=== PATIENT | male | born 1950 | race Two or more races ===

== ENCOUNTER 2025-10-20 10:01 | Emergency (ER) | payer OTHER, MEDICAID ==
[~2025-10-20] VITALS: Ht 165.1 cm; Wt 81.0 kg
--- NOTE | 2025-10-20 10:42 | ED.PDOC ---
Zhang. trauma (HPI) HPI Comments 75-year-old male who presents to the ED for chief complaint rib pain S/P fall. The patient presents with the son who states three four days prior patient was in restroom and being assisted by son due to patient history of stroke and states patient stood up in place and states his legs came out on him and the faucet hit the left side of his chest wall. Patient did not fall to the ground and was able to help break his fall and no associated loss consciousness. Patient states over the past two days he started to have increased pain when taking deep breaths in the left side of his chest and was brought by son to the ED for further evaluation Chief Complaint: Rib Pain Time Seen by MD: 10:39 Reviewed notes: Medications, Allergies Allergies: Coded Allergies: NO KNOWN ALLERGIES (Unverified , 10/20/25) Information Source: Patient, Relative Mode of Arrival: Wheelchair Brought in by: Son Severity: Moderate Timing: Hours Duration: Since onset Past Medical History PAST MEDICAL HISTORY: CVA Surgical History: Denies all surgeries Family History Family History: Reviewed,noncontributory to illness Social History Smoker: Non-Smoker Alcohol: Denies ETOH Use Drugs: Denies Drug Use Lives In: Home Constitutional: denies: chills, diaphoresis, fatigue, fever, malaise, sweats, weakness, others EENTM: denies: blurred vision, double vision, ear bleeding, ear discharge, ear drainage, ear pain, ear ringing, eye pain, eye redness, hearing loss, mouth pain, mouth swelling, nasal discharge, nose bleeding, nose congestion, nose pain, photophobia, tearing, throat pain, throat swelling, voice changes, others Respiratory: denies: cough, hemoptysis, orthopnea, SOB at rest, shortness of breath, SOB with excertion, stridor, wheezing, others Cardiovascular: denies: chest pain, dizzy spells, diaphoresis, Dyspnea on exertion, edema, irregular heart beat, left arm pain, lightheadedness, palpitations, PND, syncope, others Gastrointestinal: denies: abdomen distended, abdominal pain, blood streaked bowels, constipated, diarrhea, dysphagia, difficulty swallowing, hematemesis, melena, nausea, poor appetite, poor fluid intake, rectal bleeding, rectal pain, vomiting, others Genitourinary: denies: burning, dysuria, flank pain, frequency, hematuria, incontinence, penile discharge, penile sore, pain, testicle pain, testicle swelling, urgency, others Neurological: denies: dizziness, fainting, headache, left sided numbness, left sided weakness, numbness, paresthesia, pre-existing deficit, right sided numbness, right sided weakness, seizure, speech problems, tingling, tremors, weakness, others Musculoskeletal: reports: muscle pain (Left-sided chest wall pain); denies: back pain, gout, joint pain, joint swelling, muscle stiffness, neck pain, others Integumetry: denies: bruises, change in color, change in hair/nails, dryness, laceration, lesions, lumps, rash, wounds, others Allergic/Immunocompromised: denies: Difficulty Healing, Frequent Infections, Hives, Itching, others Hematologic/Lymphatic: denies: anemia, blood clots, easy bleeding, easy bruising, swollen glands, others Endocrine: denies: excessive hunger, excessive sweating, excessive thirst, excessive urination, flushing, intolerance to cold, intolerance to heat, unexplained weight gain, unexplained weight loss, others Psychiatric: denies: anxiety, bipolar disorder, depression, hopeless, panic disorder, schizophrenia, sleepless, suicidal, others All Other Systems: Reviewed and Negative Physical Exam General Appearance: No Apparent Distress, Normal HEENT: Normal ENT Inspection, Pharynx Normal, TMs Normal Neck: Full Range of Motion, Non-Tender, Normal, Normal Inspection Respiratory: Chest Non-Tender, Lungs Clear, No Accessory Muscle Use, No Respiratory Distress, Normal Breath Sounds Cardiovascular: No Edema, No JVD, No Murmur, No Gallop, Normal Peripheral Pulses, Regular Rate/Rhythm Breast Exam: Deferred Gastrointestinal: No Organomegaly, Non Tender, No Pulsatile Mass, Normal Bowel Sounds, Soft Genitalia: Deferred Pelvic: Deferred Rectal: Deferred Extremities: Tender (Localized TTP to the left rib cage) Musculoskeletal : Apperance: Normal Neurologic: Alert, entry level chemist II-XII nml as Tested, No Motor Deficits, Normal Affect, Normal Mood, No Sensory Deficits Cerebellar Function: Normal Reflexes: Normal Skin: Dry, Normal Color, Warm Lymphatic: No Adenopathy Was a procedure done? Was a procedure done?: No Differential Diagnosis Multiple Trauma: Closed Head Injury, Cardiac Injury, Intraabdominal Injury, Pulmonary Contusion, Urological Injury, Vascular Injury, Contusion X-Ray, Labs, Meds, VS Vital Signs Date Time Temp Pulse Resp B/P (MAP) Pulse Ox O2 Delivery O2 Flow Rate FiO2 10/20/25 11:42 97.7 60 16 148/62 (90) 95 97.7 10/20/25 11:42 60 16 95 Room Air 10/20/25 10:03 97.8 59 18 155/84 97 97.8 [place] [address] Ph: [phone] DIAGNOSTIC IMAGING Diagnostic Imaging Report : [id number] Signed PATIENT: WALLY PETERSEN ACCT: [id number] UNIT: [id number] : 1950 LOC: ER ROOM / BED: / AGE / SEX: 75 / M ADM STATUS: REG ER SERVICE 1029 ORDERING PHYSICIAN: DASH RABAGO NP PROCEDURE(s): LRIBS - L RIB X RAY REASON: r/o fracture ORDER NUMBER(s): [id number], ACCESSION NUMBER(s): [id number] EXAMINATION: XY L RIB X RAY INDICATION: pain; r/o fracture COMPARISON: None TECHNIQUE: Frontal view of the chest and 3 views of the left ribs history FINDINGS: No focal consolidation, pleural effusion or significant pneumothorax. Normal cardiomediastinal silhouette. No displaced left rib fracture. Evaluation is limited due to technique of the exam. IMPRESSION: No acute cardiopulmonary disease. No displaced left rib fracture. Evaluation is limited due to technique of the exam. ATED BY: MARILYNN RASHID MD DICTATED DATE/TIME: 10/20/251101 SIGNED BY: MARILYNN RASHID MD SIGNED DATE/TIME: 10/20/251101 CC: X-Ray, Labs, Meds, VS Comment Patient arrives alert and oriented, ABC's intact, afebrile, vital signs stable, saturating well in room air Diagnostic imaging ordered by me and results interpreted by radiology : Left rib x-ray ED workup: Defer FURTHER imaging and lab work for outpatient follow up at this time After history and physical there is no sings of syncopal event or serious head trauma. Disposition: Discharge. Strict return precautions discussed with the patient with full understanding. Supportive care advised (rest, ice, heat, NSAIDs, stretching exercises) Massage muscles with cold pack or ice for 20 minutes 4 times per day. Usually most useful if there is swelling during the first 48 hours Heating pad on the most painful area for 20 minutes to relieve muscle spasm Sleep and the most comfortable sleeping position (usually on the side with knees bent) Light stretching, no strenuous activity, avoid frequent bending, avoid carrying heavy objects Additional MDM Review of External, Non-ED records: External records reviewed. Discussion with independent historian (EMS, family) history obtained from the patient/parents (if applicable) at bedside Chronic conditions affecting care: None Social determinants of health affecting care: None Consideration of admission (observation or admission): I considered escalation of care to admission for this patient, however given the reassuring workup, the patient is safe for outpatient management. Discussion with the Radiology: No Tests considered but not performed: Prescription medication considered but not given: Time of 1ST Reevaluation: 11:05 Reevaluation 1ST: Improved Patient Education/Counseling: Diagnosis, Treatment Family Education/Counseling: Diagnosis, Treatment Departure 1 Departure Time of Disposition: 11:26 Impression: Primary Impression: Rib pain Disposition: 01 HOME / SELF CARE / HOMELESS Condition: Stable Critical Care Note Critical Care Time?: No Stability Stability form required: No Heart Score Heart Score: Heart Score Response (Comments) Value History N/A 0 EKG N/A 0 Age N/A 0 Risk Factors N/A 0 Troponin N/A 0 Total 0 I personally scribed for DASH RABAGO NP ([email or web address]) on 10/20/25 at 10:42. Electronically submitted by Gurwinder Herring ([email or web address]). I personally scribed for DASH RABAGO NP ([email or web address]) on 10/20/25 at 11:32. Electronically submitted by Gurwinder Herring ([email or web address]). DASH RABAGO NP Oct 20, 2025 10:42
--- NOTE | 2025-10-20 11:04 | DVH ---
EXAMINATION: XY L RIB X RAY INDICATION: pain; r/o fracture COMPARISON: None TECHNIQUE: Frontal view of the chest and 3 views of the left ribs history FINDINGS: No focal consolidation, pleural effusion or significant pneumothorax. Normal cardiomediastinal silhouette. No displaced left rib fracture. Evaluation is limited due to technique of the exam. IMPRESSION: No acute cardiopulmonary disease. No displaced left rib fracture. Evaluation is limited due to technique of the exam.
[2025-10-20 11:42] VITALS: BP 148/62; PULSE 60; RESP 16; TEMP 97.7; O2SAT 95
== END 2025-10-20 11:44 | disposition home or self-care (01) ==
LOC: ER 10:01
DX: R07.89 Other chest pain (principal); Z86.73 Personal history of transient ischemic attack (TIA), and cerebral infarction without residual deficits; Z79.899 Other long term (current) drug therapy
CPT/HCPCS: 71101

== ENCOUNTER 2025-11-14 04:42 | Inpatient (IN) | payer MEDICARE, MEDICAID ==
[~2025-11-14] VITALS: Ht 170.2 cm; Wt 82.6 kg
--- NOTE | 2025-11-14 06:41 | ED.PDOC ---
HPI (NEURO) HPI Comments 75 y.o male with PMHx of CVA (left upper extremity deficits), DM, and HTN presents to the ED for a chief complaint of a generalized headache that started 3-4 days ago. Patient reports pain is constant, has no alleviating factors and described as an aching sensation. Patient states he is concerned for pain given his hx of CVA x march of 2025. He denies any recent head injuries, nausea, vomiting, new onset focal deficits, confusion, chest pain, or SOB. Chief Complaint: Headache Time Seen by MD: 06:24 Reviewed Notes: Nurses Notes, Medications, Allergies Information Source: Patient Mode of Arrival: EMS Severity: Moderate Headache Severity: Moderate Timing: Days (3-4) Duration: Since onset Headache Quality: Aching Onset: At rest Circumstances: Spontaneous Symptoms: None History of: CVA, DM, Hypertension Modifying factors: Nothing Associated Signs and Symptoms: Headache Past Medical History PAST MEDICAL HISTORY: CVA, DM, HTN Surgical History: Denies all surgeries Family History Family History: Reviewed,noncontributory to illness Social History Smoker: Non-Smoker Alcohol: Denies ETOH Use Drugs: Denies Drug Use Lives In: Home Constitutional: denies: chills, diaphoresis, fatigue, fever, malaise, sweats, weakness, others EENTM: denies: blurred vision, double vision, ear bleeding, ear discharge, ear drainage, ear pain, ear ringing, eye pain, eye redness, hearing loss, mouth pain, mouth swelling, nasal discharge, nose bleeding, nose congestion, nose pain, photophobia, tearing, throat pain, throat swelling, voice changes, others Respiratory: denies: cough, hemoptysis, orthopnea, SOB at rest, shortness of breath, SOB with excertion, stridor, wheezing, others Cardiovascular: denies: chest pain, dizzy spells, diaphoresis, Dyspnea on exertion, edema, irregular heart beat, left arm pain, lightheadedness, palpitations, PND, syncope, others Gastrointestinal: denies: abdomen distended, abdominal pain, blood streaked bowels, constipated, diarrhea, dysphagia, difficulty swallowing, hematemesis, melena, nausea, poor appetite, poor fluid intake, rectal bleeding, rectal pain, vomiting, others Genitourinary: denies: burning, dysuria, flank pain, frequency, hematuria, incontinence, penile discharge, penile sore, pain, testicle pain, testicle swelling, urgency, others Neurological: reports: headache; denies: dizziness, fainting, left sided numbness, left sided weakness, numbness, paresthesia, pre-existing deficit, right sided numbness, right sided weakness, seizure, speech problems, tingling, tremors, weakness, others Musculoskeletal: denies: back pain, gout, joint pain, joint swelling, muscle pain, muscle stiffness, neck pain, others Integumetry: denies: bruises, change in color, change in hair/nails, dryness, laceration, lesions, lumps, rash, wounds, others Allergic/Immunocompromised: denies: Difficulty Healing, Frequent Infections, Hives, Itching, others Hematologic/Lymphatic: denies: anemia, blood clots, easy bleeding, easy bruising, swollen glands, others Endocrine: denies: excessive hunger, excessive sweating, excessive thirst, excessive urination, flushing, intolerance to cold, intolerance to heat, unexplained weight gain, unexplained weight loss, others Psychiatric: denies: anxiety, bipolar disorder, depression, hopeless, panic disorder, schizophrenia, sleepless, suicidal, others All Other Systems: Reviewed and Negative Physical Exam General Appearance: Moderate Distress HEENT: Normal ENT Inspection, Pharynx Normal, TMs Normal Neck: Full Range of Motion, Non-Tender, Normal, Normal Inspection Respiratory: Chest Non-Tender, Lungs Clear, No Accessory Muscle Use, No Respiratory Distress, Normal Breath Sounds Cardiovascular: No Edema, No JVD, No Murmur, No Gallop, Normal Peripheral Pulses, Regular Rate/Rhythm Breast Exam: Deferred Gastrointestinal: No Organomegaly, Non Tender, No Pulsatile Mass, Normal Bowel Sounds, Soft Genitalia: Deferred Pelvic: Deferred Rectal: Deferred Extremities: Decreased range of motion (Left upper extremity) Musculoskeletal : Apperance: Normal Neurologic: Alert, Speech Problem Cerebellar Function: NOT DONE Reflexes: NOT DONE Skin: Normal Color Peripheral Pulses: 3+ Radial (R), 3+ Radial (L) Lymphatic: No Adenopathy Was a procedure done? Was a procedure done?: No Differential Diagnosis (SZ) Seizure: Psychogenic Seizure, Closed Head Injury, CVA/TIA Headache: Cluster, Migraine, CVA, Intracerebral Hemorrhage X-Ray, Labs, Meds, VS Vital Signs Date Time Temp Pulse Resp B/P (MAP) Pulse Ox O2 Delivery O2 Flow Rate FiO2 11/14/25 07:03 97.3 72 18 142/82 (102) 96 97.3 11/14/25 04:42 97.5 70 17 189/86 94 97.5 Lab Test 11/14/25 06:58 Range/Units White Blood Count 8.8 4.4-10.8 10^3/uL Red Blood Count 4.72 4.5-5.90 10^6/uL Hemoglobin 15.6 13.5-17.5 g/dL Hematocrit 44.9 41.0-53.0 % Mean Corpuscular Volume 95.2 80.0-100.0 fL Mean Corpuscular Hemoglobin 33.1 H 28.0-32.0 pg Mean Corpuscular Hemoglobin Concent 34.7 32.0-36.0 g/dL Red Cell Distribution Width 14.7 H 11.8-14.3 % Platelet Count 311 140-450 10^3/uL Mean Platelet Volume 7.5 6.9-10.8 fL Neutrophils (%) (Auto) 65.5 37.0-80.0 % Lymphocytes (%) (Auto) 25.3 10.0-50.0 % Monocytes (%) (Auto) 6.6 0.0-12.0 % Eosinophils (%) (Auto) 2.4 0.0-7.0 % Basophils (%) (Auto) 0.2 0.0-2.0 % Neutrophils # (Auto) 5.8 1.6-8.6 10 ^3/uL Lymphocytes # (Auto) 2.2 0.4-5.4 10 ^3/uL Monocytes # (Auto) 0.6 0-1.3 10 ^3/uL Eosinophils # (Auto) 0.2 0-0.8 10 ^3/uL Basophils # (Auto) 0 0-0.2 10 ^3/uL Nucleated Red Blood Cells 0.0 % Prothrombin Time 10.5 9.3-11.8 sec Prothrombin Time INR 0.99 0.9-1.15 Activated Partial Thromboplast Time 27.6 24.5-34.5 SEC Sodium Level 139 136-145 mmol/L Potassium Level 3.7 3.5-5.1 mmol/L Chloride Level 101 98-107 mmol/L Carbon Dioxide Level 27 20-31 mmol/L Anion Gap 11 5-15 Blood Urea Nitrogen 6 L 9-23 mg/dL Creatinine 0.73 0.700-1.30 mg/dL Glomerular Filtration Rate Calc 96 >90 mL/min BUN/Creatinine Ratio 8.2 L 10.0-20.0 Serum Glucose 94 74-106 mg/dL Hemoglobin A1c 5.4 <5.7 % A1C Calcium Level 9.9 8.7-10.4 mg/dL Phosphorus Level 3.4 2.4-5.1 mg/dL Magnesium Level 1.9 1.6-2.6 mg/dL Total Bilirubin 0.5 0.2-1.0 mg/dL Direct Bilirubin 0.2 <0.3 mg/dL Aspartate Amino Transferase (AST) 16 13-40 U/L Alanine Aminotransferase (ALT) 17 7-40 U/L Alkaline Phosphatase 129 H 46-116 U/L Total Protein 7.7 5.7-8.2 g/dL Albumin 4.8 3.2-4.8 g/dL Triglycerides Level 76 < 150 mg/dL Cholesterol Level 142 < 200 mg/dL LDL Cholesterol 82 < 100 mg/dL HDL Cholesterol 47 40-59 mg/dL Vitamin B12 Level Pending Vitamin D 25-Hydroxy Pending Thyroid Stimulating Hormone (TSH) 2.00 0.55-4.78 uIU/mL Current Medications Medications (Trade) Dose Ordered Sig/Ling Route Start Time Stop Time Status Last Admin Sodium Chloride 1,000 ml @ 1,000 mls/hr Q1H ONCE IV 11/14/25 06:45 11/14/25 07:44 DC 11/14/25 07:32 Patient alert. Came in because of left upper extremity weakness. He is able to move his bilateral lower extremity. Speech may has been affected. WBC within normal limits. Hemoglobin within normal limits. The headache could be due to spasms. Possible TIA. CT scan of the head reviewed does not show any acute changes. Explained to the patient that he will need further studies. Continue monitoring. [address] [address] Ph: [phone] DIAGNOSTIC IMAGING Diagnostic Imaging Report : [id number] Signed PATIENT: WALLY PETERSEN ACCT: [id number] UNIT: [id number] : 1950 LOC: ER ROOM / BED: / AGE / SEX: 75 / M ADM STATUS: REG ER SERVICE ORDERING PHYSICIAN: SULTANA WICK MD PROCEDURE(s): HWOCT - HEAD WITHOUT CONTRAST REASON: headache ORDER NUMBER(s): [id number], ACCESSION NUMBER(s): [id number] CT HEAD WITHOUT CONTRAST INDICATION: headache COMPARISON: None TECHNIQUE: CT of the head without intravenous contrast. RADIATION DOSE: CTDIvol: 52 mGy, DLP: 947 mGy*cm FINDINGS: There is no evidence of acute intracranial hemorrhage, extra-axial collection, mass effect, midline shift, herniation or hydrocephalus. The ventricles, sulci and cisterns are age appropriate. The valero-white differentiation is intact. Chronic encephalomalacia is seen in the right temporal occipital lobe. Chronic microvascular ischemic changes. The visualized paranasal sinuses and mastoid air cells are clear. The surrounding soft tissues and osseous structures are unremarkable. IMPRESSION: 1. No acute intracranial abnormality. 2. Chronic encephalomalacia is seen in the right temporal occipital lobe. 3. Chronic microvascular ischemic changes. ATED BY: JASWINDER WHEELER MD DICTATED DATE/TIME: 11/14/25714 SIGNED BY: JASWINDER WHEELER MD SIGNED DATE/TIME: 11/14/25714 CC: Time of 1ST Reevaluation: 06:38 Reevaluation 1ST: Unchanged Patient Education/Counseling: Diagnosis, Treatment, Prognosis Family Education/Counseling: No Family Present Departure 1 Departure Time of Disposition: 07:23 Impression: Primary Impression: TIA (transient ischemic attack) Additional Impression: Old cerebrovascular accident without late effect Disposition: 09 ADMITTED INPATIENT Admit to: Med Surg Condition: Guarded Critical Care Note Critical Care Time?: No Stability Stability form required: No Heart Score Heart Score: Heart Score Response (Comments) Value History N/A 0 EKG N/A 0 Age N/A 0 Risk Factors N/A 0 Troponin N/A 0 Total 0 I personally scribed for SULTANA WICK MD ([email or web address]) on 11/14/25 at 06:41. Electronically submitted by Nenita Lang ([facility]). I personally scribed for SULTANA WICK MD ([email or web address]) on 11/14/25 at 10:21. Electronically submitted by Nenita Lang ([facility]). SULTANA WICK MD Nov 14, 2025 06:41
[2025-11-14 07:10] LABS: Hematocrit 44.9 % (41.0-53.0); Hemoglobin 15.6 g/dL (13.5-17.5); Mean Corpuscular Hemoglobin 33.1 pg (28.0-32.0); Mean Corpuscular Volume 95.2 fL (80.0-100.0); Nucleated Red Blood Cells % 0.0 %
[2025-11-14 07:18] LABS: Chloride 101 mmol/L (98-107); Potassium 3.7 mmol/L (3.5-5.1); Sodium 139 mmol/L (136-145)
--- NOTE | 2025-11-14 07:18 | DVH ---
CT HEAD WITHOUT CONTRAST INDICATION: headache COMPARISON: None TECHNIQUE: CT of the head without intravenous contrast. RADIATION DOSE: CTDIvol: 52 mGy, DLP: 947 mGy*cm FINDINGS: There is no evidence of acute intracranial hemorrhage, extra-axial collection, mass effect, midline shift, herniation or hydrocephalus. The ventricles, sulci and cisterns are age appropriate. The valero-white differentiation is intact. Chronic encephalomalacia is seen in the right temporal occipital lobe. Chronic microvascular ischemic changes. The visualized paranasal sinuses and mastoid air cells are clear. The surrounding soft tissues and osseous structures are unremarkable. IMPRESSION: 1. No acute intracranial abnormality. 2. Chronic encephalomalacia is seen in the right temporal occipital lobe. 3. Chronic microvascular ischemic changes.
[2025-11-14 07:19] LABS: Anion Gap 11 (5-15); Calcium 9.9 mg/dL (8.7-10.4); Carbon Dioxide 27 mmol/L (20-31)
[2025-11-14 07:24] LABS: BUN/Creatinine Ratio 8.2 (10.0-20.0); Glucose 94 mg/dL (74-106)
[2025-11-14 07:26] LABS: Blood Urea Nitrogen 6 mg/dL (9-23)
[2025-11-14] MEDS ORDERED: ONDANSETRON HCL 4 MG/2 ML VIAL IV PRN ×2 (07:30→22:00)
[2025-11-14] MEDS: SODIUM CHLORIDE 0.9% 1,000 ML IV ONE (07:32)
--- NOTE | 2025-11-14 07:37 | DVHHPRES ---
History of Present Illness Resident Creating Document: SABIHA GUILLEN RESIDENT History of Present Illness Jeremy Carmona is a 75-year-old male patient who presents to ED with chief complaint of occipital oppressive headache which started a proximally one week ago, which radiates towards neck. Patient reports not taking his antihypertensive medication and rest of home medication for the past two weeks since he started living with his son in [place] (he previously was living in [place] in specialized nursing facility), he also feels more stress since living with son. 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 Denies any other associated symptoms including worsening of his left-sided weakness, new sensory deficit, meningeal signs, photophobia. 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 Surgical history: Denies Family history: Mother had ME Social history: Lives in [place] with son (next of kin). Ex tobacco abuse (a proximally one pack-year history of smoking) quit 30 years ago. 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 Denies current tobacco, alcohol and other drug abuse Allergies: Tramadol (per patient he had cardiac arrest) Home medication: Lisinopril5 mg p.o. daily, Tylenol PRN, baclofen, atorvastatin and Plavix. Patient seen and examined at bedside. Currently has no new complaints. Past Medical History Per HPI Past Surgical History Per HPI Family History Per HPI Past Social History In per HPI Review of Systems Review of Systems Per HPI Allergies: Coded Allergies: NO KNOWN ALLERGIES (Unverified , 10/20/25) Exam Vital Signs Vital Signs Date Time Temp Pulse Resp B/P (MAP) Pulse Ox O2 Delivery O2 Flow Rate FiO2 11/14/25 07:03 97.3 72 18 142/82 (102) 96 97.3 Exam Patient lying in bed, in no acute distress General: Lucid, afebrile, mucosae are moist Cardiovascular: Normal S1 and S2. No murmurs, gallops or rubs Respiratory: Normal ventilation mechanics. Clear lung sounds on auscultation Abdomen: Soft, nontender, no organomegaly, normal bowel sounds MSK/skin: Mobilizes 4 limbs. Skin is dry and warm Neurological: Oriented in 3 spheres. Left-sided brachial and crural weakness, no other motor no sensitive deficits. Pupils are isocoric and reactive Labs/Xrays Labs Test 11/14/25 06:58 Range/Units White Blood Count 8.8 4.4-10.8 10^3/uL Red Blood Count 4.72 4.5-5.90 10^6/uL Hemoglobin 15.6 13.5-17.5 g/dL Hematocrit 44.9 41.0-53.0 % Mean Corpuscular Volume 95.2 80.0-100.0 fL Mean Corpuscular Hemoglobin 33.1 H 28.0-32.0 pg Mean Corpuscular Hemoglobin Concent 34.7 32.0-36.0 g/dL Red Cell Distribution Width 14.7 H 11.8-14.3 % Platelet Count 311 140-450 10^3/uL Mean Platelet Volume 7.5 6.9-10.8 fL Neutrophils (%) (Auto) 65.5 37.0-80.0 % Lymphocytes (%) (Auto) 25.3 10.0-50.0 % Monocytes (%) (Auto) 6.6 0.0-12.0 % Eosinophils (%) (Auto) 2.4 0.0-7.0 % Basophils (%) (Auto) 0.2 0.0-2.0 % Neutrophils # (Auto) 5.8 1.6-8.6 10 ^3/uL Lymphocytes # (Auto) 2.2 0.4-5.4 10 ^3/uL Monocytes # (Auto) 0.6 0-1.3 10 ^3/uL Eosinophils # (Auto) 0.2 0-0.8 10 ^3/uL Basophils # (Auto) 0 0-0.2 10 ^3/uL Nucleated Red Blood Cells 0.0 % Sodium Level 139 136-145 mmol/L Potassium Level 3.7 3.5-5.1 mmol/L Chloride Level 101 98-107 mmol/L Carbon Dioxide Level 27 20-31 mmol/L Anion Gap 11 5-15 Blood Urea Nitrogen 6 L 9-23 mg/dL Creatinine 0.73 0.700-1.30 mg/dL Glomerular Filtration Rate Calc 96 >90 mL/min BUN/Creatinine Ratio 8.2 L 10.0-20.0 Serum Glucose 94 74-106 mg/dL Calcium Level 9.9 8.7-10.4 mg/dL SEPSIS Sepsis Screen Date sepsis recognized/suspect: Nov 14, 2025 Time Sepsis recognized/suspect: 441 Recent Procedure: No On Antibiotic Therapy: No Respiratory Rate >20: No Heart Rate >90: No Temp<36 C (96.8 F) or >38.3 C: No SBP <90 or MAP <65 mmHG: No New Acute Mental Status Change: No Is the patient on CPAP, BIPAP,: No Physician Orders Head Without Contrast (11/14/25 06:37) Sodium Chloride 0.9% (11/14/25 06:45) Admit (11/14/25 07:) Code Status (11/14/25:) Vital Signs .PER UNIT PROTOCOL (11/14/25 07:27) Review Orders With Adm.Md (11/14/25 07:) Acetaminophen Tablet (Tylenol Tablet) (11/14/25 07:30) Notify Md Of Changes From Base (11/14/25 07:27) Advance Directive (11/14/25 07:27) Chest Two Views Routine (11/15/25 04:00) Echo 2d Mode Cardiac Dop (11/14/25 07:27) Patient Condition (11/14/25:) Allergies (11/14/25 07:) Ondansetron Hcl (Zofran) (11/14/25 07:30) Morphine 2mg Iv Q4hprn (11/14/25 07:30) Lovenox 40mg (11/14/25 10:00) Oxygen By Nasal Cannula (11/14/25:) Stat Ekg For Chest Pain (11/14/25 07:27) Notify Md Of Changes From Base (11/14/25 07:) Bag Adjuster For 24 Hours (11/14/25:) Emergency Dysrhythmia Protocol (11/14/25:) Rhythm Strips Once Every Shift (11/14/25 07:27) Vitamin D, 25-Hydroxy (11/14/25 07:27) Vitamin B12 (11/14/25 07:27) Urinalysis (11/14/25:) Thyroid Stimulating Hormone (11/14/25 07:27) PTPTT (11/14/25 07:27) Phosphorus (11/14/25 07:27) Magnesium (11/14/25 07:27) Lipid Panel (11/14/25 07:27) Hemoglobin A1c (11/14/25 07:27) Drug Screen (11/14/25 07:27) Electrocardigram (11/14/25 07:27) Aspirin Enteric Coated Tablet (Ecotrin E (11/14/25 10:00) Atorvastatin (Lipitor) (11/14/25 22:00) Vital Signs Date Time Temp Pulse Resp B/P (MAP) Pulse Ox O2 Delivery O2 Flow Rate FiO2 11/14/25 07:03 97.3 72 18 142/82 (102) 96 97.3 11/14/25 04:42 97.5 70 17 189/86 94 97.5 Laboratory Tests Test 11/14/25 06:58 White Blood Count 8.8 10^3/uL (4.4-10.8) Assessment/Plan Assessment/Plan ASSESSMENT Hypertensive crisis Rule out CVA Essential hypertension Dyslipidemia Chronic back pain History of multiple CVAs with residual left-sided weakness, dysarthria and dysphagia Non adherence PLAN Admit patient to telemetry Completed head CT which showed no acute findings, chronic encephalomalacia of right temporal occipital lobe, and chronic microvascular changes. Continued home medication which patient was not taking due to new living situation (lisinopril, Tylenol, baclofen, atorvastatin and Plavix). Added aspirin Indicated lidocaine patch for chronic back pain. Per patient he took tramadol cost cardiac arrest. Ordered physical therapy sessions, we will evaluate requirement of specialized nursing facility Ordered EKG and chest x-ray Ordered protective services social worker to evaluate home safety. Patient does not feel safe with his son, he was not able to access his home medication. Goals of care discussed with patient for over18 minutes: Full code status Discussed plan with Dr. Marques, patient and nurses: Admitted to telemetry. Head CT ruled out acute intracranial bleeding, awaiting complementary workup including EKG and chest x-ray. Resume home medication which he is was not taking. Added aspirin. Physical therapy and protective services social worker on board for eventual discharge planning in a safe environment. Patient has poor prognosis. Plan discussed with: Patient, Other (Nurses) My Orders Orders - SABIHA GUILLEN RESIDENT Procedure Category Date Status Time Admit ADMIT 11/14/25 Transmitted 07:27 Code Status CODE 11/14/25 Transmitted 07:27 Vital Signs [facility] 11/14/25 In Process 07:27 Review Orders With [facility] 11/14/25 In Process Adm. 07:27 Acetaminophen Tablet [facility] 11/14/25 Transmitted (Tylenol Tablet) 07:30 Notify Md Of Changes [facility] 11/14/25 In Process From Base 07:27 Advance Directive [facility] 11/14/25 In Process 07:27 Chest Two Views XY 11/15/25 Logged Routine 04:00 Echo 2d Mode Cardiac US 11/14/25 Logged DOP 07:27 Patient Condition ORDERS 11/14/25 Transmitted 07:27 Allergies [facility] 11/14/25 In Process 07:27 Ondansetron Hcl [facility] 11/14/25 Transmitted (Zofran) 07:30 Morphine 2mg Iv Q4hprn [facility] 11/14/25 Transmitted 07:30 Lovenox 40mg PHA 11/14/25 Transmitted 10:00 Oxygen By Nasal RT 11/14/25 Transmitted Cannula 07:27 Stat Ekg For Chest [facility] 11/14/25 Transmitted Pain 07:27 Notify Md Of Changes [facility] 11/14/25 Transmitted From Base 07:27 Bag Adjuster For [facility] 11/14/25 Transmitted 24 Hours 07:27 Emergency Dysrhythmia [facility] 11/14/25 Transmitted Protocol 07:27 Rhythm Strips Once [facility] 11/14/25 Transmitted Every Shift 07:27 Vitamin D, 25-Hydroxy LAB 11/14/25 Transmitted 07:27 Vitamin B12 LAB 11/14/25 Transmitted 07:27 Urinalysis LAB 11/14/25 Transmitted 07:27 Thyroid Stimulating LAB 11/14/25 Transmitted Hormone 07:27 PTPTT LAB 11/14/25 Transmitted 07:27 Phosphorus LAB 11/14/25 Transmitted 07:27 Magnesium LAB 11/14/25 Transmitted 07:27 Lipid Panel LAB 11/14/25 Transmitted 07:27 Hemoglobin A1c LAB 11/14/25 Transmitted 07:27 Drug Screen LAB 11/14/25 Transmitted 07:27 Electrocardigram EKG 11/14/25 Logged 07:27 Aspirin Enteric PHA 11/14/25 Transmitted Coated Tablet 10:00 Atorvastatin (Lipitor) PHA 11/14/25 Transmitted 22:00 Visit Coding STANDARD RES Billing Provider: SON MARQUES MD Date of Service if different f: Nov 14, 2025 Common Visit Codes: [id number] INP/OBS CARE (HIGH) Secondary Visit Codes: [id number] CARE PLAN 30 MINUTES SABIHA GUILLEN RESIDENT Nov 14, 2025 07:37
[2025-11-14] MEDS ORDERED: BACLOFEN 10 MG TAB PO PRN ×2 (08:00→22:15)
[2025-11-14 08:03] LABS: Magnesium 1.9 mg/dL (1.6-2.6); Triglycerides 76.0 mg/dL (< 150)
[2025-11-14 08:05] LABS: Cholesterol 142.0 mg/dL (< 200); HDL Cholesterol 47.0 mg/dL (40-59)
[2025-11-14] MEDS ORDERED: MORPHINE SULFATE 4 MG/ML SYR/VIAL IV PRN ×2 (08:15→22:00)
[2025-11-14 08:18] LABS: INR 0.99 (0.9-1.15); Partial Thromboplastin Time 27.6 SEC (24.5-34.5); Prothrombin Time 10.5 sec (9.3-11.8)
[2025-11-14 08:37] LABS: Alanine Aminotransferase 17.0 U/L (7-40); Albumin 4.8 g/dL (3.2-4.8); Bilirubin, Direct 0.2 mg/dL (<0.3); Bilirubin, Total 0.5 mg/dL (0.2-1.0); Total Protein 7.7 g/dL (5.7-8.2)
[2025-11-14 08:41] LABS: Alkaline Phosphatase 129.0 U/L (46-116)
[2025-11-14 09:23] VITALS: BP 138/69; PULSE 72; RESP 16; TEMP 98.4; O2SAT 98
[2025-11-14] MEDS: LIDOCAINE 5% TOPICAL PATCH TOP SCH (10:00)
[2025-11-14] MEDS: ASPirin-EC 81 mg tab PO SCH (10:00)
[2025-11-14 11:59] LABS: Urine Protein, UAD TRACE (Negative)
[2025-11-14] MEDS: CLOPIDOGREL BISULFATE 75 MG TAB PO SCH (12:01)
[2025-11-14] MEDS: LISINOPRIL 5 MG TAB PO SCH (12:01)
[2025-11-14] MEDS: ACETAMINOPHEN 325 MG TAB PO PRN (12:02)
[2025-11-14] MEDS: ENOXAPARIN SOD 40 MG/0.4 ML SYRINGE SC SCH (12:02)
[2025-11-14 12:28] LABS: Amphetamine Screen, Urine Neg (NEGATIVE); Barbiturate Scree,Urine Neg (NEGATIVE); Benzodiazephine Screen, Urine Neg (NEGATIVE); Cannabinoid Screen, Urine Neg (NEGATIVE); Cocaine Screen, Urine Neg (NEGATIVE); Opiate Scree,Urine Neg (NEGATIVE); Phencyclidine Screen, Urine Neg (NEGATIVE)
--- NOTE | 2025-11-14 12:40 | DVH ---
CHEST RADIOGRAPH INDICATION: Hypertensive crisis TECHNIQUE: Single frontal view of the chest was obtained COMPARISON: None FINDINGS: Lines and Tubes: None Lungs: Mildly prominent interstitial markings right chest left base. No prior studies for comparison Pleura: No effusion. No pneumothorax. Cardiomediastinal contours: Unremarkable Bones: No acute osseous abnormality. IMPRESSION: 1. Mildly prominent interstitial markings right chest in the left base. No prior studies for comparison
[2025-11-14 13:00] VITALS: BP_SYST 110; BP_SYST 132; BP_DIAS 70; BP_DIAS 86; PULSE 70; RESP 16; TEMP 97.6; TEMP 98.6; O2SAT 96
[2025-11-14 14:00] VITALS: BP 107/53; PULSE 63; RESP 16; TEMP 97.5; O2SAT 97
[2025-11-14 17:00] VITALS: BP 135/83; PULSE 64; RESP 16; TEMP 97.8; O2SAT 98
--- NOTE | 2025-11-14 18:11 | DVHPN2 ---
Reviewed: H&P Changes from previous H/P or p: No Changes General: Per HPI Objective Vitals Vital Signs Date Time Temp Pulse Resp B/P (MAP) Pulse Ox O2 Delivery O2 Flow Rate FiO2 11/14/25 17:00 97.8 64 16 135/83 (100) 98 97.8 11/14/25 09:23 Room Air* 0 21 Exam General: Lucid, afebrile, mucosae are moist Cardiovascular: Normal S1 and S2. No murmurs, gallops or rubs Respiratory: Normal ventilation mechanics. Clear lung sounds on auscultation Abdomen: Soft, nontender, no organomegaly, normal bowel sounds MSK/skin: Mobilizes 4 limbs. Skin is dry and warm Neurological: Oriented in 3 spheres. Left-sided brachial and crural weakness, no other motor no sensitive deficits. Pupils are isocoric and reactive Medications Current Medications Medications Dose Ordered Sig/Ling Route Start Time Stop Time Status Last Admin Dose Admin Acetaminophen 650 mg Q6HP PRN PO 11/14/25 07:30 11/14/25 12:02 650 MG Ondansetron HCl 4 mg Q4HP PRN IV 11/14/25 07:30 Morphine Sulfate 2 mg Q4HPRN PRN IV 11/14/25 08:15 Enoxaparin Sodium 40 mg DAILY SC 11/14/25 10:00 11/14/25 12:02 40 MG Aspirin 81 mg DAILY PO 11/14/25 10:00 11/14/25 10:00 81 MG Atorvastatin Calcium 40 mg HS PO 11/14/25 22:00 Clopidogrel Bisulfate 75 mg DAILY PO 11/14/25 10:00 11/14/25 12:01 75 MG Lidocaine 1 patch DAILY TOP 11/14/25 10:00 Lisinopril 5 mg DAILY PO 11/14/25 10:00 11/14/25 12:01 5 MG Baclofen 5 mg Q8HP PRN PO 11/14/25 08:00 Ceftriaxone Sodium 50 ml @ 100 mls/hr DAILY@09 IV 11/15/25 09:00 Zinc Acetate/ Diphenhydramine 1 applic Q6HP PRN TOP 11/14/25 16:30 Laboratory Results Laboratory Tests 11/14/25 06:58 Chemistry Test 11/14/25 06:58 Albumin 4.8 g/dL (3.2-4.8) Calcium Level 9.9 mg/dL (8.7-10.4) Magnesium Level 1.9 mg/dL (1.6-2.6) Phosphorus Level 3.4 mg/dL (2.4-5.1) Total Protein 7.7 g/dL (5.7-8.2) Coagulation Test 11/14/25 06:58 Prothrombin Time 10.5 sec (9.3-11.8) Prothrombin Time INR 0.99 (0.9-1.15) Activated Partial Thromboplast Time 27.6 SEC (24.5-34.5) Lipid panel Test 11/14/25 06:58 Cholesterol Level 142 mg/dL (< 200) HDL Cholesterol 47 mg/dL (40-59) Triglycerides Level 76 mg/dL (< 150) LFT Test 11/14/25 06:58 Alanine Aminotransferase (ALT) 17 U/L (7-40) Alkaline Phosphatase 129 U/L (46-116) H Aspartate Amino Transferase (AST) 16 U/L (13-40) Direct Bilirubin 0.2 mg/dL (<0.3) Total Bilirubin 0.5 mg/dL (0.2-1.0) HgA1c, TSH Test 11/14/25 06:58 Hemoglobin A1c 5.4 % A1C (<5.7) Thyroid Stimulating Hormone (TSH) 2.00 uIU/mL (0.55-4.78) Urinalysis Test 11/14/25 10:55 Urine Color Yellow (Yellow) Urine Clarity Cloudy (Clear) H Urine pH 7.5 (5.0-9.0) Urine Specific [place] 1.014 (1.001-1.035) Urine Protein Trace (Negative) H Urine Ketones Negative (Negative) Urine Blood 1+ /uL (Negative) H Urine Nitrite 2+ (Negative) H Urine Bilirubin Negative (Negative) Urine Urobilinogen Normal mg/dL (Negative) Urine Leukocyte Esterase 3+ /uL (Negative) Urine RBC 11 /hpf (0 - 3) Urine Microscopic WBC 288 /HPF (0-3) H Urine Squamous Epithelial Cells Few /hpf (<5) Urine Bacteria Few /hpf (None Seen) H Urine Glucose Normal mg/dL (Normal) Labs and/or images reviewed: Labs reviewed by me, Image(s) reviewed by me Assessment/Plan Assessment/Plan Jeremy Carmona is a 75-year-old male patient who presents to ED with chief complaint of occipital oppressive headache which started a proximally one week ago, which radiates towards neck. Patient reports not taking his antihypertensive medication and rest of home medication for the past two weeks since he started living with his son in [place] (he previously was living in [place] in specialized nursing facility), he also feels more stress since living with son. 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 Denies any other associated symptoms including worsening of his left-sided weakness, new sensory deficit, meningeal signs, photophobia. 11/14: Patient is complaining of pain around penis and burning in pain. This is likely from UTI symptoms. We will give Benadryl cream. We will add ceftriaxone. Otherwise continue treatment plan per admission team. 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 Continued home medication which patient was not taking due to new living situation (lisinopril, Tylenol, baclofen, atorvastatin and Plavix). Added aspirin Indicated lidocaine patch for chronic back pain. Per patient he took tramadol cost cardiac arrest. Ordered physical therapy sessions, we will evaluate requirement of specialized nursing facility Ordered EKG and chest x-ray Ordered social staff worker to evaluate home safety. Patient does not feel safe with his son, he was not able to access his home medication. Tele Full code Plan discussed with: Patient My Orders Orders - ZIGGY ESCALANTE MD Procedure Category Date Status Time Urine Bacterial CHRISTIANO 11/14/25 Uncollected Culture 16:27 Diphenhydramine-Zinc PHA 11/14/25 In Process Cream (Benadryl Cre 16:30 Ceftriaxone 1gm/50ml PHA 11/15/25 In Process (Rocephin) 09:00 Date of Service: Nov 14, 2025 Billing Provider: ZIGGY ESCALANTE MD Common Visit Codes: [id number] INP/OBS CARE(HIGH) ZIGGY ESCALANTE MD Nov 14, 2025 18:11
[2025-11-14] MEDS: PROCHLORPERAZINE EDISYLATE 5 MG/ML 2ML VIAL IV ONE ×2 (18:24→23:07)
[2025-11-14 20:00] VITALS: PULSE 54
[2025-11-14 21:00] VITALS: BP 148/84; PULSE 61; RESP 18; TEMP 97.9; O2SAT 94
[2025-11-14] MEDS ORDERED: ATORVASTATIN 20 MG TAB PO SCH (22:00)
[2025-11-15] VITALS (8 sets, daily range): BP systolic 120–152; BP diastolic 61–91; PULSE 55–125; RESP 16–18; TEMP 97–98; O2SAT 91–98
--- NOTE | 2025-11-15 02:39 | DVHSR ---
APPROVED REPORT EXAM: Two-dimensional and M-mode echocardiogram with Doppler, color Doppler and Bubble Study. Blood Pressure: 139/87 mmHg INDICATION hypertensive crisis RISK FACTORS Height: 5'7, Weight: 220 DIMENSIONS LVDd 4.3 (3.8-5.7cm) LA (2D) 4.0 (1.9-4.0cm) Aortic Root 3.4 (2.0-3.7cm) LVDs 3.3 (2.5-4.0cm) LA (MM) (1.9-4.0cm) Aortic Cusp Exc 1.9 (1.5-2.0cm) EF (%) 50.0 (55-70%) Rt. Atrium 3.2 (1.9-4.0cm) Asc. Aorta cm IVSd 0.7 (0.7-1.1cm) RV (D) 3.3 (1.8-2.4cm) PWd 0.9 (0.7-1.1cm) Mitral Valve Mitral Mitral Stenosis E wave 0.68m/s MV Mean GR. mmHg A wave 1.03m/s MV Peak GR. 59mmHg E/A ratio 0.7 2D MVA cm2 DECEL Time 263ms PRESS 1/2 Time ms Aortic Valve Aortic Valve Aortic Stenosis V1 0.86m/s AO Mean GR. mmHg V2 1.20m/s AO Peak GR. 6mmHg LVOT Diameter 2.2 (1.8-2.4cm) Doppler JAYLA 2.72cm2 AI P 1/2 Time 689.08ms Other Information Technically limited study due to patient position.body habitus.pt had stroke unable to move left side Conclusion MILD LVH AND MILD LV DIASTOLIC DYSFUNCTION LV EF IS 65% AND IS NORMAL MODERATELY CALCIFIED MITRAL LEAFLETS MILD MR AORTIC SCLEROSIS MILD AORTIC REGURGITATION NO EFFUSION
[2025-11-15 06:18] LABS: Hematocrit 42.9 % (41.0-53.0); Hemoglobin 15.1 g/dL (13.5-17.5); Mean Corpuscular Hemoglobin 33.5 pg (28.0-32.0); Mean Corpuscular Volume 95.0 fL (80.0-100.0); Nucleated Red Blood Cells % 0.1 %
[2025-11-15 06:36] LABS: Alanine Aminotransferase 13 U/L (7-40); Albumin 4.0 g/dL (3.2-4.8); Alkaline Phosphatase 106 U/L (46-116); Anion Gap 9 (5-15); Calcium 9.3 mg/dL (8.7-10.4); Carbon Dioxide 25 mmol/L (20-31); Chloride 104 mmol/L (98-107); Glucose 91 mg/dL (74-106); Potassium 3.7 mmol/L (3.5-5.1); Sodium 138 mmol/L (136-145); Total Protein 6.5 g/dL (5.7-8.2)
[2025-11-15 06:37] LABS: Bilirubin, Total 0.7 mg/dL (0.2-1.0)
[2025-11-15 06:42] LABS: BUN/Creatinine Ratio 9.3 (10.0-20.0); Blood Urea Nitrogen < 5 mg/dL (9-23)
[2025-11-15] MEDS: CLOPIDOGREL BISULFATE 75 MG TAB PO SCH (09:00)
[2025-11-15] MEDS: ASPirin-EC 81 mg tab PO SCH (09:12)
[2025-11-15] MEDS: LIDOCAINE 5% TOPICAL PATCH TOP SCH (09:12)
[2025-11-15] MEDS: ENOXAPARIN SOD 40 MG/0.4 ML SYRINGE SC SCH (09:12)
--- NOTE | 2025-11-15 14:21 | DVHPN2 ---
Reviewed: H&P Changes from previous H/P or p: No Changes General: Per HPI Objective Vitals Vital Signs Date Time Temp Pulse Resp B/P (MAP) Pulse Ox O2 Delivery O2 Flow Rate FiO2 11/15/25 13:00 98.0 86 17 152/91 (111) 94 98.0 11/15/25 08:00 Room Air* 0 21 Intake/Output Intake and Output 11/15/25 07:00 Intake Total 400 ml Output Total 1200 ml Balance -800 ml Intake Oral 400 ml Output Urine Total 1200 ml # Voids 2 # Bowel Movements 1 Exam General: Lucid, afebrile, mucosae are moist Cardiovascular: Normal S1 and S2. No murmurs, gallops or rubs Respiratory: Normal ventilation mechanics. Clear lung sounds on auscultation Abdomen: Soft, nontender, no organomegaly, normal bowel sounds MSK/skin: Mobilizes 4 limbs. Skin is dry and warm Neurological: Oriented in 3 spheres. Left-sided brachial and crural weakness, no other motor no sensitive deficits. Pupils are isocoric and reactive Medications Current Medications Medications Dose Ordered Sig/Ling Route Start Time Stop Time Status Last Admin Dose Admin Acetaminophen 650 mg Q6HP PRN PO 11/14/25 07:30 11/15/25 14:12 650 MG Lisinopril 5 mg DAILY PO 11/14/25 10:00 11/15/25 09:11 5 MG Ondansetron HCl 4 mg Q4HP PRN IV 11/14/25 22:00 Morphine Sulfate 2 mg Q4HPRN PRN IV 11/14/25 22:00 Enoxaparin Sodium 40 mg DAILY SC 11/15/25 10:00 11/15/25 09:12 40 MG Aspirin 81 mg DAILY PO 11/15/25 10:00 11/15/25 09:12 81 MG Atorvastatin Calcium 40 mg HS PO 11/15/25 22:00 Clopidogrel Bisulfate 75 mg DAILY PO 11/15/25 10:00 11/15/25 09:00 75 MG Lidocaine 1 patch DAILY TOP 11/15/25 10:00 11/15/25 09:12 1 PATCH Baclofen 5 mg Q8HP PRN PO 11/14/25 22:15 Ceftriaxone Sodium 50 ml @ 100 mls/hr DAILY@09 IV 11/15/25 09:00 11/15/25 09:00 100 MLS/HR Zinc Acetate/ Diphenhydramine 1 applic Q6HP PRN TOP 11/14/25 22:15 Laboratory Results Laboratory Tests 11/15/25 05:57 Chemistry Test 11/15/25 05:57 Albumin 4.0 g/dL (3.2-4.8) Calcium Level 9.3 mg/dL (8.7-10.4) Total Protein 6.5 g/dL (5.7-8.2) LFT Test 11/15/25 05:57 Alanine Aminotransferase (ALT) 13 U/L (7-40) Alkaline Phosphatase 106 U/L (46-116) Aspartate Amino Transferase (AST) 14 U/L (13-40) Total Bilirubin 0.7 mg/dL (0.2-1.0) Urinalysis Test 11/14/25 10:55 Urine Color Yellow (Yellow) Urine Clarity Cloudy (Clear) H Urine pH 7.5 (5.0-9.0) Urine Specific [place] 1.014 (1.001-1.035) Urine Protein Trace (Negative) H Urine Ketones Negative (Negative) Urine Blood 1+ /uL (Negative) H Urine Nitrite 2+ (Negative) H Urine Bilirubin Negative (Negative) Urine Urobilinogen Normal mg/dL (Negative) Urine Leukocyte Esterase 3+ /uL (Negative) Urine RBC 11 /hpf (0 - 3) Urine Microscopic WBC 288 /HPF (0-3) H Urine Squamous Epithelial Cells Few /hpf (<5) Urine Bacteria Few /hpf (None Seen) H Urine Glucose Normal mg/dL (Normal) Microbiology Microbiology Date/Time Source Procedure Growth Status 11/14/25 18:00 Voided Urine Urine Culture - Preliminary Resulted Labs and/or images reviewed: Labs reviewed by me, Image(s) reviewed by me Assessment/Plan Assessment/Plan Jeremysarwat Carmona is a 75-year-old male patient who presents to ED with chief complaint of occipital oppressive headache which started a proximally one week ago, which radiates towards neck. Patient reports not taking his antihypertensive medication and rest of home medication for the past two weeks since he started living with his son in [place] (he previously was living in [place] in specialized nursing facility), he also feels more stress since living with son. 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 Denies any other associated symptoms including worsening of his left-sided weakness, new sensory deficit, meningeal signs, photophobia. 11/14: Patient is complaining of pain around penis and burning in pain. This is likely from UTI symptoms. We will give Benadryl cream. We will add ceftriaxone. Otherwise continue treatment plan per admission team. 11/15: Patient is still short of breath still having headaches. We will get head CT noncontrast. For shortness of breath she says he has scoliosis on echo 65% EF has diastolic dysfunction mild we will give 20 Lasix IV 1 time there is some mild rales in the bases of lungs. No pedal edema. Patient's urinary symptoms are better. Urine culture showing mixed sneha we will continue IV antibiotics. We will get BMP and BNP.. Yesterday Compazine worked really well. If Tylenol does not work we can be okay to try another Compazine 5 mg IV 1 time. As needed. 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 Continued home medication which patient was not taking due to new living situation (lisinopril, Tylenol, baclofen, atorvastatin and Plavix). Added aspirin Indicated lidocaine patch for chronic back pain. Per patient he took tramadol cost cardiac arrest. Ordered physical therapy sessions, we will evaluate requirement of specialized nursing facility Ordered EKG and chest x-ray Ordered socially responsible investment adviser to evaluate home safety. Patient does not feel safe with his son, he was not able to access his home medication. Tele Full code Plan discussed with: Patient My Orders Orders - ZIGGY ESCALANTE MD Procedure Category Date Status Time Urine Bacterial CHRISTIANO 11/14/25 In Process Culture 18:00 Clear Liq Diet DIET 11/15/25 Transmitted Breakfast Ceftriaxone 1gm/50ml PHA 11/15/25 In Process (Rocephin) 09:00 Diphenhydramine-Zinc PHA 11/14/25 In Process Cream (Benadryl Cre 22:15 Date of Service: Nov 15, 2025 Billing Provider: ZIGGY ESCALANTE MD Common Visit Codes: [id number] INP/OBS CARE(HIGH) ZIGGY ESCALANTE MD Nov 15, 2025 14:21
[2025-11-15] MEDS: FUROSEMIDE 40 MG/4 ML VIAL IV ONE ×2 (14:30→22:50)
--- NOTE | 2025-11-15 15:39 | DVH ---
COMPUTERIZED TOMOGRAPHY OF THE HEAD WITHOUT CONTRAST REASON FOR STUDY: Headache COMPARISON: CT HEAD WITHOUT CONTRAST on DOS: 11/14/25 TECHNIQUE: Helical tomographic scans were obtained through the brain. 2-D coronal and sagittal reformatted images are provided. Radiation optimization: All CT scans at this facility use at least one of these dose optimization techniques: Automated exposure control mA and/or kV adjustment per patient size (includes targeted exams where dose is matched to clinical indication) or iterative reconstruction. RADIATION DOSE: CTDI: 64 mGy DLP: 1260 mGy-cm FINDINGS: Motion artifact degrades evaluation. No suspicious intracranial hyperdensity to suggest acute blood. There is encephalomalacia in the right occipital and posterior right temporal lobes. There are several old lacunar infarcts in bilateral basal ganglia There is no mass effect nor midline shift. There is moderate generalized volume loss with compensatory enlargement of the CSF spaces. There is no hydrocephalus. The suprasellar cistern is intact. There are scattered periventricular and deep white matter hypodensities that are most consistent with chronic microangiopathic changes. The calvarium is intact. The visualized mastoid air cells and paranasal sinuses are clear. IMPRESSION: No acute intracranial abnormality. Moderate generalized volume loss with chronic small vessel ischemic change. Encephalomalacia in the right occipital and posterior right temporal lobes. Several old lacunar infarcts in bilateral basal ganglia.
--- NOTE | 2025-11-15 15:45 | DVH ---
CHEST RADIOGRAPH INDICATION: SOB TECHNIQUE: Single frontal view of the chest was obtained COMPARISON: XY CHEST XRAY 1 VIEW on DOS: 11/14/25 FINDINGS: Lines and Tubes: None Lungs: No focal consolidation. Pleura: No effusion. No pneumothorax. Cardiomediastinal contours: Unremarkable Bones: No acute osseous abnormality. IMPRESSION: 1. No acute cardiopulmonary disease.
[2025-11-15 17:11] LABS: Chloride 101 mmol/L (98-107); Potassium 3.9 mmol/L (3.5-5.1); Sodium 140 mmol/L (136-145)
[2025-11-15 17:12] LABS: Anion Gap 12 (5-15); Calcium 9.9 mg/dL (8.7-10.4); Carbon Dioxide 27 mmol/L (20-31)
[2025-11-15 17:17] LABS: Glucose 83 mg/dL (74-106)
[2025-11-15 17:18] LABS: BUN/Creatinine Ratio 7.6 (10.0-20.0); Blood Urea Nitrogen < 5 mg/dL (9-23)
[2025-11-15] MEDS ORDERED: ATORVASTATIN 20 MG TAB PO SCH (22:00)
[2025-11-15] MEDS ORDERED: MORPHINE SULFATE 4 MG/ML SYR/VIAL IV PRN (22:15)
[2025-11-15] MEDS ORDERED: ONDANSETRON HCL 4 MG/2 ML VIAL IV PRN (22:15)
[2025-11-15] MEDS ORDERED: BACLOFEN 10 MG TAB PO PRN (22:15)
[2025-11-15] MEDS: ACETAMINOPHEN 325 MG TAB PO PRN (22:50)
[2025-11-16] VITALS (8 sets, daily range): BP systolic 133–158; BP diastolic 51–87; PULSE 62–97; RESP 15–19; TEMP 97.7–98; O2SAT 94–96
[2025-11-16 06:20] LABS: Hematocrit 45.6 % (41.0-53.0); Hemoglobin 16.0 g/dL (13.5-17.5); Mean Corpuscular Hemoglobin 33.2 pg (28.0-32.0); Mean Corpuscular Volume 94.4 fL (80.0-100.0); Nucleated Red Blood Cells % 0.0 %
[2025-11-16 06:45] LABS: Alanine Aminotransferase 13 U/L (7-40); Albumin 4.4 g/dL (3.2-4.8); Alkaline Phosphatase 113 U/L (46-116); Anion Gap 11 (5-15); Bilirubin, Total 0.6 mg/dL (0.2-1.0); Calcium 9.5 mg/dL (8.7-10.4); Carbon Dioxide 26 mmol/L (20-31); Chloride 101 mmol/L (98-107); Glucose 94 mg/dL (74-106); Potassium 3.5 mmol/L (3.5-5.1); Sodium 138 mmol/L (136-145); Total Protein 7.2 g/dL (5.7-8.2)
[2025-11-16 06:49] LABS: BUN/Creatinine Ratio 8.5 (10.0-20.0); Blood Urea Nitrogen < 5 mg/dL (9-23)
[2025-11-16] MEDS: LISINOPRIL 5 MG TAB PO SCH (08:54)
[2025-11-16] MEDS: CLOPIDOGREL BISULFATE 75 MG TAB PO SCH (08:54)
[2025-11-16] MEDS: LIDOCAINE 5% TOPICAL PATCH TOP SCH (08:55)
[2025-11-16] MEDS: ENOXAPARIN SOD 40 MG/0.4 ML SYRINGE SC SCH (08:55)
[2025-11-16] MEDS: ASPirin-EC 81 mg tab PO SCH (08:55)
--- NOTE | 2025-11-16 10:08 | ECG ---
[facility] Test Date: 2025-11-14 Test Time: 08:35:28 Pat Name: WALLY PETERSEN Department: Room: 0247T B Gender: M Agriculture Science Teacher: RAYNE : 1950 Requested By: SABIHA GUILLEN Order Number: [id number] Reading MD: Ahmet Devine Measurements Intervals [place] Rate: 67 P: -4 WY: 150 QRS: 1 QRSD: 77 T: 44 QT: 407 QTc: 430 Interpretive Statements Sinus rhythm Abnormal R-wave progression, early transition Electronically Signed On 11-19-2025 17:29:00 PST by Ahmet Devine Please click the below link to view image of tracing.
--- NOTE | 2025-11-16 14:23 | DVHDS2 ---
Discharge Summary Date of Admission Nov 14, 2025 at 07:27 Date of Discharge: Nov 16, 2025 Labs/Diagnostic Data: Laboratory Results Test 11/16/25 05:40 11/15/25 16:16 11/14/25 10:55 11/14/25 06:58 White Blood Count 9.3 10^3/uL (4.4-10.8) Red Blood Count 4.83 10^6/uL (4.5-5.90) Hemoglobin 16.0 g/dL (13.5-17.5) Hematocrit 45.6 % (41.0-53.0) Mean Corpuscular Volume 94.4 fL (80.0-100.0) Mean Corpuscular Hemoglobin 33.2 pg (28.0-32.0) Mean Corpuscular Hemoglobin Concent 35.1 g/dL (32.0-36.0) Red Cell Distribution Width 14.5 % (11.8-14.3) Platelet Count 288 10^3/uL (140-450) Mean Platelet Volume 7.8 fL (6.9-10.8) Neutrophils (%) (Auto) 64.4 % (37.0-80.0) Lymphocytes (%) (Auto) 25.9 % (10.0-50.0) Monocytes (%) (Auto) 7.4 % (0.0-12.0) Eosinophils (%) (Auto) 2.1 % (0.0-7.0) Basophils (%) (Auto) 0.2 % (0.0-2.0) Neutrophils # (Auto) 6.0 10 ^3/uL (1.6-8.6) Lymphocytes # (Auto) 2.4 10 ^3/uL (0.4-5.4) Monocytes # (Auto) 0.7 10 ^3/uL (0-1.3) Eosinophils # (Auto) 0.2 10 ^3/uL (0-0.8) Basophils # (Auto) 0 10 ^3/uL (0-0.2) Nucleated Red Blood Cells 0.0 % Sodium Level 138 mmol/L (136-145) Potassium Level 3.5 mmol/L (3.5-5.1) Chloride Level 101 mmol/L (98-107) Carbon Dioxide Level 26 mmol/L (20-31) Anion Gap 11 (5-15) Blood Urea Nitrogen < 5 mg/dL (9-23) Creatinine 0.59 mg/dL (0.700-1.30) Glomerular Filtration Rate Calc 102 mL/min (>90) BUN/Creatinine Ratio 8.5 (10.0-20.0) Serum Glucose 94 mg/dL (74-106) Calcium Level 9.5 mg/dL (8.7-10.4) Total Bilirubin 0.6 mg/dL (0.2-1.0) Aspartate Amino Transferase (AST) 13 U/L (13-40) Alanine Aminotransferase (ALT) 13 U/L (7-40) Alkaline Phosphatase 113 U/L (46-116) Total Protein 7.2 g/dL (5.7-8.2) Albumin 4.4 g/dL (3.2-4.8) B-Type Natriuretic Peptide 31.55 pg/mL (0-100) Urine Color Yellow (Yellow) Urine Clarity Cloudy (Clear) Urine pH 7.5 (5.0-9.0) Urine Specific [place] 1.014 (1.001-1.035) Urine Protein Trace (Negative) Urine Ketones Negative (Negative) Urine Blood 1+ /uL (Negative) Urine Nitrite 2+ (Negative) Urine Bilirubin Negative (Negative) Urine Urobilinogen Normal mg/dL (Negative) Urine Leukocyte Esterase 3+ /uL (Negative) Urine RBC 11 /hpf (0 - 3) Urine Microscopic WBC 288 /HPF (0-3) Urine Squamous Epithelial Cells Few /hpf (<5) Urine Bacteria Few /hpf (None Seen) Urine Glucose Normal mg/dL (Normal) Urine Opiates Screen Neg (NEGATIVE) Urine Fentanyl Screen Neg (NEGATIVE) Urine Barbiturates Screen Neg (NEGATIVE) Urine Phencyclidine Screen Neg (NEGATIVE) Urine Amphetamines Screen Neg (NEGATIVE) Urine Benzodiazepines Screen Neg (NEGATIVE) Urine Cocaine Screen Neg (NEGATIVE) Urine Cannabinoids Screen Neg (NEGATIVE) Prothrombin Time 10.5 sec (9.3-11.8) Prothrombin Time INR 0.99 (0.9-1.15) Activated Partial Thromboplast Time 27.6 SEC (24.5-34.5) Hemoglobin A1c 5.4 % A1C (<5.7) Phosphorus Level 3.4 mg/dL (2.4-5.1) Magnesium Level 1.9 mg/dL (1.6-2.6) Direct Bilirubin 0.2 mg/dL (<0.3) Triglycerides Level 76 mg/dL (< 150) Cholesterol Level 142 mg/dL (< 200) LDL Cholesterol 82 mg/dL (< 100) HDL Cholesterol 47 mg/dL (40-59) Vitamin B12 Level 225 pg/mL (211-911) Thyroid Stimulating Hormone (TSH) 2.00 uIU/mL (0.55-4.78) Other Laboratory Tests 11/16/25 05:40 Brief Hx & Hospital Course: Jeremy Carmona is a 75-year-old male patient who presents to ED with chief complaint of occipital oppressive headache which started a proximally one week ago, which radiates towards neck. Patient reports not taking his antihypertensive medication and rest of home medication for the past two weeks since he started living with his son in [place] (he previously was living in [place] in specialized nursing facility), he also feels more stress since living with son. 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 Denies any other associated symptoms including worsening of his left-sided weakness, new sensory deficit, meningeal signs, photophobia. 11/14: Patient is complaining of pain around penis and burning in pain. This is likely from UTI symptoms. We will give Benadryl cream. We will add ceftriaxone. Otherwise continue treatment plan per admission team. 11/15: Patient is still short of breath still having headaches. We will get head CT noncontrast. For shortness of breath she says he has scoliosis on echo 65% EF has diastolic dysfunction mild we will give 20 Lasix IV 1 time there is some mild rales in the bases of lungs. No pedal edema. Patient's urinary symptoms are better. Urine culture showing mixed sneha we will continue IV antibiotics. We will get BMP and BNP.. Yesterday Compazine worked really well. If Tylenol does not work we can be okay to try another Compazine 5 mg IV 1 time. As needed. 11/16: Patient urine culture multi sneha, we will have to treat empirically. Patient per PT eval needs SNF acute PT rehab, patient agrees. Unable to contact patient's son no one picked up. We will send patient to PT rehab, patient can finish ABD antibiotic course for UTI as oral antibiotics. ASSESSMENT Acute complicated cystitis, with hematuria Hypertensive crisis Ruled out CVA Essential hypertension Dyslipidemia Chronic back pain histtory CVA multiple lacunar infarcts CT evidence of encephalomalacia History of multiple CVAs with residual left-sided weakness, dysarthria and dysphagia Non adherence plan: - SNF with PT rehab. -patient can finish antibiotic course for UTI as oral antibiotics. augmentin 875mg 2x/day for 5 days -Continue other home medications -follow up with PCP to review discharge Condition at Discharge: Fair Final Diagnosis/Problems List Acute complicated cystitis, with hematuria Hypertensive crisis Ruled out CVA Essential hypertension Dyslipidemia Chronic back pain histtory CVA multiple lacunar infarcts CT evidence of encephalomalacia History of multiple CVAs with residual left-sided weakness, dysarthria and dysphagia Non adherence Discharge Disposition: [facility] Discharge Statement: "Patient was advised to return to the ER or call 911 if any headaches, dizziness, shortness of breath, chest pain, abdominal pain, bleeding, fevers, or worsening of medical condition. Patient was counseled about treatment plan, medications, possible side effects, patientverbalized understanding. All questions were answered to the best of my ability. This discharge took greater then 30 minutes in planning, reviewing documentation, counseling the patient, and discussing with other team members." ASSESSMENT ASSESSMENT Assessment Date of Service: Nov 16, 2025 Billing Provider: ZIGGY ESCALANTE MD Common Visit Codes: [id number] DISCH DAY >30min ZIGGY ESCALANTE MD Nov 16, 2025 14:23
[2025-11-16] MEDS: ATORVASTATIN 20 MG TAB PO SCH (22:09)
[2025-11-17] VITALS (8 sets, daily range): BP systolic 119–166; BP diastolic 68–95; PULSE 65–102; RESP 16–18; TEMP 97.6–97.9; O2SAT 94–96
--- NOTE | 2025-11-17 14:05 | DVHPN2 ---
Reviewed: H&P Changes from previous H/P or p: No Changes General: Per HPI Objective Vitals Vital Signs Date Time Temp Pulse Resp B/P (MAP) Pulse Ox O2 Delivery O2 Flow Rate FiO2 11/17/25 10:20 127/81 11/17/25 09:00 97.9 81 17 95 97.9 11/17/25 08:00 Room Air* 0 21 Intake/Output Intake and Output 11/17/25 07:00 Intake Total 930 ml Output Total 1200 ml Balance -270 ml Intake Oral 880 ml IV Total 50 ml Output Urine Total 1200 ml Exam General: Lucid, afebrile, mucosae are moist Cardiovascular: Normal S1 and S2. No murmurs, gallops or rubs Respiratory: Normal ventilation mechanics. Clear lung sounds on auscultation Abdomen: Soft, nontender, no organomegaly, normal bowel sounds MSK/skin: Mobilizes 4 limbs. Skin is dry and warm Neurological: Oriented in 3 spheres. Left-sided brachial and crural weakness, no other motor no sensitive deficits. Pupils are isocoric and reactive Medications Current Medications Medications Dose Ordered Sig/Ling Route Start Time Stop Time Status Last Admin Dose Admin Acetaminophen 650 mg Q6HP PRN PO 11/15/25 22:15 11/16/25 22:52 650 MG Lisinopril 5 mg DAILY PO 11/16/25 10:00 11/17/25 10:20 5 MG Ondansetron HCl 4 mg Q4HP PRN IV 11/15/25 22:15 Morphine Sulfate 2 mg Q4HPRN PRN IV 11/15/25 22:15 Enoxaparin Sodium 40 mg DAILY SC 11/16/25 10:00 11/17/25 10:22 40 MG Aspirin 81 mg DAILY PO 11/16/25 10:00 11/17/25 10:20 81 MG Atorvastatin Calcium 40 mg HS PO 11/16/25 22:00 11/16/25 22:09 40 MG Clopidogrel Bisulfate 75 mg DAILY PO 11/16/25 10:00 11/17/25 10:20 75 MG Lidocaine 1 patch DAILY TOP 11/16/25 10:00 11/17/25 10:14 1 PATCH Baclofen 5 mg Q8HP PRN PO 11/15/25 22:15 Ceftriaxone Sodium 50 ml @ 100 mls/hr DAILY@09 IV 11/16/25 09:00 11/16/25 08:54 100 MLS/HR Zinc Acetate/ Diphenhydramine 1 applic Q6HP PRN TOP 11/15/25 22:15 Amoxicillin/ Clavulanate Potassium 875 mg BID PO 11/17/25 22:00 Laboratory Results Laboratory Tests 11/16/25 05:40 Urinalysis Test 11/14/25 10:55 Urine Color Yellow (Yellow) Urine Clarity Cloudy (Clear) H Urine pH 7.5 (5.0-9.0) Urine Specific [place] 1.014 (1.001-1.035) Urine Protein Trace (Negative) H Urine Ketones Negative (Negative) Urine Blood 1+ /uL (Negative) H Urine Nitrite 2+ (Negative) H Urine Bilirubin Negative (Negative) Urine Urobilinogen Normal mg/dL (Negative) Urine Leukocyte Esterase 3+ /uL (Negative) Urine RBC 11 /hpf (0 - 3) Urine Microscopic WBC 288 /HPF (0-3) H Urine Squamous Epithelial Cells Few /hpf (<5) Urine Bacteria Few /hpf (None Seen) H Urine Glucose Normal mg/dL (Normal) Microbiology Microbiology Date/Time Source Procedure Growth Status 11/14/25 18:00 Voided Urine Urine Culture - Final Complete Labs and/or images reviewed: Labs reviewed by me, Image(s) reviewed by me Assessment/Plan Assessment/Plan Jeremy Carmona is a 75-year-old male patient who presents to ED with chief complaint of occipital oppressive headache which started a proximally one week ago, which radiates towards neck. Patient reports not taking his antihypertensive medication and rest of home medication for the past two weeks since he started living with his son in [place] (he previously was living in [place] in specialized nursing facility), he also feels more stress since living with son. 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 Denies any other associated symptoms including worsening of his left-sided weakness, new sensory deficit, meningeal signs, photophobia. 11/14: Patient is complaining of pain around penis and burning in pain. This is likely from UTI symptoms. We will give Benadryl cream. We will add ceftriaxone. Otherwise continue treatment plan per admission team. 11/15: Patient is still short of breath still having headaches. We will get head CT noncontrast. For shortness of breath she says he has scoliosis on echo 65% EF has diastolic dysfunction mild we will give 20 Lasix IV 1 time there is some mild rales in the bases of lungs. No pedal edema. Patient's urinary symptoms are better. Urine culture showing mixed sneha we will continue IV antibiotics. We will get BMP and BNP.. Yesterday Compazine worked really well. If Tylenol does not work we can be okay to try another Compazine 5 mg IV 1 time. As needed. 11/16: Plan to discharge patient to SNF to complete p.o. antibiotics. Patient's knees PT rehab and medication management. See DC summary from drop 11/16 for reference. 11/17: Spoke to patient's son Montrell, family in agreement with discharge plan. Continuing discharge plan. 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 Continued home medication which patient was not taking due to new living situation (lisinopril, Tylenol, baclofen, atorvastatin and Plavix). Added aspirin Indicated lidocaine patch for chronic back pain. Per patient he took tramadol cost cardiac arrest. Ordered physical therapy sessions, we will evaluate requirement of specialized nursing facility Ordered EKG and chest x-ray Ordered social media intern to evaluate home safety. Patient does not feel safe with his son, he was not able to access his home medication. Tele Full code Plan discussed with: Patient My Orders Orders - ZIGGY ESCALANTE MD Procedure Category Date Status Time Discharge DISCHARGE 11/17/25 Transmitted 12:00 * Weight And Test Bar Clerk CONS 11/17/25 Transmitted Consult 12:04 Amoxicillin/Clavulanate PHA 11/17/25 In Process Tablet (Augmenti 22:00 Date of Service: Nov 17, 2025 Billing Provider: ZIGGY ESCALANTE MD Common Visit Codes: [id number] INP/OBS CARE(HIGH) ZIGGY ESCALANTE MD Nov 17, 2025 14:05
[2025-11-18 01:00] VITALS: BP 122/57; PULSE 80; RESP 14; RESP 18; TEMP 97.6; TEMP 98.3; O2SAT 93; O2SAT 98
[2025-11-18 05:00] VITALS: BP 145/83; PULSE 81; RESP 16; TEMP 97.8; O2SAT 94
[2025-11-18 08:00] VITALS: PULSE 71
[2025-11-18 09:02] VITALS: BP 128/74; PULSE 59; RESP 20; TEMP 98.6; O2SAT 97
[2025-11-18 12:27] VITALS: BP 132/73; PULSE 66; RESP 20; TEMP 98.2; O2SAT 92
[2025-11-18 13:22] VITALS: BP 132/73; PULSE 66; RESP 20; TEMP 98.2; O2SAT 92
--- NOTE | 2025-11-18 14:03 | DVHPN2 ---
Reviewed: H&P Changes from previous H/P or p: No Changes General: Per HPI Objective Vitals Vital Signs Date Time Temp Pulse Resp B/P (MAP) Pulse Ox O2 Delivery O2 Flow Rate FiO2 11/18/25 13:22 98.2 66 20 132/73 (92) 92 98.2 11/18/25 08:00 Room Air* 0 21 Intake/Output Intake and Output 11/18/25 07:00 Intake Total 500 ml Output Total 750 ml Balance -250 ml Intake Oral 500 ml Output Urine Total 750 ml Exam General: Lucid, afebrile, mucosae are moist Cardiovascular: Normal S1 and S2. No murmurs, gallops or rubs Respiratory: Normal ventilation mechanics. Clear lung sounds on auscultation Abdomen: Soft, nontender, no organomegaly, normal bowel sounds MSK/skin: Mobilizes 4 limbs. Skin is dry and warm Neurological: Oriented in 3 spheres. Left-sided brachial and crural weakness, no other motor no sensitive deficits. Pupils are isocoric and reactive Medications Current Medications Medications Dose Ordered Sig/Ling Route Start Time Stop Time Status Last Admin Dose Admin Acetaminophen 650 mg Q6HP PRN PO 11/15/25 22:15 11/17/25 20:17 650 MG Lisinopril 5 mg DAILY PO 11/16/25 10:00 11/18/25 09:26 5 MG Ondansetron HCl 4 mg Q4HP PRN IV 11/15/25 22:15 Morphine Sulfate 2 mg Q4HPRN PRN IV 11/15/25 22:15 Enoxaparin Sodium 40 mg DAILY SC 11/16/25 10:00 11/18/25 09:27 40 MG Aspirin 81 mg DAILY PO 11/16/25 10:00 11/18/25 09:26 81 MG Atorvastatin Calcium 40 mg HS PO 11/16/25 22:00 11/17/25 21:48 40 MG Clopidogrel Bisulfate 75 mg DAILY PO 11/16/25 10:00 11/18/25 09:26 75 MG Lidocaine 1 patch DAILY TOP 11/16/25 10:00 11/18/25 09:27 1 PATCH Baclofen 5 mg Q8HP PRN PO 11/15/25 22:15 Ceftriaxone Sodium 50 ml @ 100 mls/hr DAILY@09 IV 11/16/25 09:00 Hold 11/17/25 09:00 100 MLS/HR Zinc Acetate/ Diphenhydramine 1 applic Q6HP PRN TOP 11/15/25 22:15 Amoxicillin/ Clavulanate Potassium 875 mg BID PO 11/17/25 22:00 11/18/25 09:26 875 MG Laboratory Results Laboratory Tests 11/16/25 05:40 Urinalysis Test 11/14/25 10:55 Urine Color Yellow (Yellow) Urine Clarity Cloudy (Clear) H Urine pH 7.5 (5.0-9.0) Urine Specific [place] 1.014 (1.001-1.035) Urine Protein Trace (Negative) H Urine Ketones Negative (Negative) Urine Blood 1+ /uL (Negative) H Urine Nitrite 2+ (Negative) H Urine Bilirubin Negative (Negative) Urine Urobilinogen Normal mg/dL (Negative) Urine Leukocyte Esterase 3+ /uL (Negative) Urine RBC 11 /hpf (0 - 3) Urine Microscopic WBC 288 /HPF (0-3) H Urine Squamous Epithelial Cells Few /hpf (<5) Urine Bacteria Few /hpf (None Seen) H Urine Glucose Normal mg/dL (Normal) Microbiology Microbiology Date/Time Source Procedure Growth Status 11/14/25 18:00 Voided Urine Urine Culture - Final Complete Labs and/or images reviewed: Labs reviewed by me, Image(s) reviewed by me Assessment/Plan Assessment/Plan Jeremy Carmona is a 75-year-old male patient who presents to ED with chief complaint of occipital oppressive headache which started a proximally one week ago, which radiates towards neck. Patient reports not taking his antihypertensive medication and rest of home medication for the past two weeks since he started living with his son in [place] (he previously was living in [place] in specialized nursing facility), he also feels more stress since living with son. 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 Denies any other associated symptoms including worsening of his left-sided weakness, new sensory deficit, meningeal signs, photophobia. 11/14: Patient is complaining of pain around penis and burning in pain. This is likely from UTI symptoms. We will give Benadryl cream. We will add ceftriaxone. Otherwise continue treatment plan per admission team. 11/15: Patient is still short of breath still having headaches. We will get head CT noncontrast. For shortness of breath she says he has scoliosis on echo 65% EF has diastolic dysfunction mild we will give 20 Lasix IV 1 time there is some mild rales in the bases of lungs. No pedal edema. Patient's urinary symptoms are better. Urine culture showing mixed sneha we will continue IV antibiotics. We will get BMP and BNP.. Yesterday Compazine worked really well. If Tylenol does not work we can be okay to try another Compazine 5 mg IV 1 time. As needed. 11/16: Plan to discharge patient to SNF to complete p.o. antibiotics. Patient's knees PT rehab and medication management. See DC summary from drop 11/16 for reference. 11/17: Spoke to patient's son Montrell, family in agreement with discharge plan. Continuing discharge plan. 11/18: Continue with discharge plan to SNF PT rehab. ASSESSMENT Acute complicated cystitis, with hematuria Hypertensive crisis Ruled out CVA Essential hypertension Dyslipidemia Chronic back pain histtory CVA multiple lacunar infarcts CT evidence of encephalomalacia History of multiple CVAs with residual left-sided weakness, dysarthria and dysphagia Non adherence plan: - SNF with PT rehab. IV antibiotics -CCP mg q.6 PRN Maintenance 75 mg p.o. b.i.d. Aspirin 81 p.o. daily Lipitor 40 mg p.o. daily Baclofen 5 mg t.i.d. prn Plavix 75 mg p.o. daily Lovenox 40 subQ daily Lidocaine patch 5% topical daily for back pain Lisinopril 5 mg daily Zofran 4 mg prn Ceftriaxone hold Tele Full code Plan discussed with: Patient My Orders Orders - ZIGGY ESCALANTE MD Procedure Category Date Status Time Discharge DISCHARGE 11/18/25 Transmitted 12:00 Date of Service: Nov 18, 2025 Billing Provider: ZIGGY ESCALANTE MD Common Visit Codes: [id number] INP/OBS CARE(MOD) ZIGGY ESCALANTE MD Nov 18, 2025 14:03
== END 2025-11-18 15:44 | DRG 305 ==
LOC: ER 04:42 → EDBD 04:42 → OVERFLOW 07:27 → TELE-EAST 14:02
PROVIDERS: ADMIT Student in an Organized Health Care Education/Training Program; ATTEND Student in an Organized Health Care Education/Training Program
DX: I16.9 Hypertensive crisis, unspecified (principal); G93.89 Other specified disorders of brain; N30.01 Acute cystitis with hematuria; E11.9 Type 2 diabetes mellitus without complications; I10 Essential (primary) hypertension; I69.354 Hemiplegia and hemiparesis following cerebral infarction affecting left non-dominant side; E78.5 Hyperlipidemia, unspecified; G89.29 Other chronic pain; M54.9 Dorsalgia, unspecified; M41.9 Scoliosis, unspecified; Z91.148 Patient's other noncompliance with medication regimen for other reason
CPT/HCPCS: 36415; 70450; 71045; 80048; 80053; 80061; 80076; 80307; 81001; 82306; 82607; 83036; 83735; 83880; 84100; 84443; 85025; 85610; 85730; 87086; 93005; 93306; 96360; 97110; 97116; 97163; 97530; G0378